=== PATIENT | male | born 1975 | race American Indian/Alaskan Native ===

== ENCOUNTER 2024-07-13 09:22 | Inpatient (IN) | payer BC, SELFPAY ==
--- NOTE | 2024-07-13 | XR_ITS ---
Examinations: MRI Brain without intravenous contrast. MRA brain without intravenous contrast. MRA carotids without intravenous contrast 3-D vascular reconstructions Date and time of exam: July 13, 2024 at 1157 hours INDICATIONS: Onset left-sided facial numbness today, stroke alert CT brain scan, CT brain July 13, 2024 subtle low density in the right occipital lobe, consistent with early infarct Technique: Multiple axial and sagittal images of the brain have been obtained MRA brain carotid images without contrast obtained, including 3-D postprocessing, vascular maximum intensity projection images Findings: Sellaturcica is not enlarged. The optic chiasm and infundibular stalk are not remarkable. Prepontine and interpeduncular cisterns are not enlarged. No localized enlargement of the medulla or donovan. Fourth ventricle and cerebellar tonsils normal in position. Subacute hemorrhage is not seen. Fourth ventricle is midline. Mass in the cerebellopontine angle region is not evident. 7th and 8th nerve complexes exhibits symmetry. Globes are symmetrical with no retro-orbital mass. Increased white matter signal not seen Diffusion-weighted images demonstrate no focus of restricted diffusion Mass-effect upon the ventricular system is not identified. MRA carotid images no large vessel occlusions. MRA brain images no carotid stenoses Impression: Negative for acute hemorrhage mass effect or midline shift No acute infarct No MR findings diagnostic for demyelinating disease No significant carotid stenoses No cerebral large vessel arterial occlusions or thrombus
[2024-07-13 09:30] VITALS: PULSE 58
[2024-07-13 09:34] VITALS: BP 142/92; PULSE 62; RESP 16; TEMP 36.7; O2SAT 98; BMI 29.4
--- NOTE | 2024-07-13 09:37 | XR_ITS ---
Examination: CTA carotids with intravenous contrast CTA brain, head with intravenous contrast. 2-D sagittal, coronal reconstructions. 3-D reconstructions. Exam date and time: July 13, 2024 0952 hours INDICATIONS: Stroke alert, onset left-sided body numbness beginning this morning CTDI: vol (mGy) 36.5 DLP: (mGycm) 507 Technique: Multiple CTA axial brain, head carotid images post intravenous contrast injection 75 cc, [id number]. 2-D sagittal, coronal reconstructions. 3-D reconstructions, 3-D post processing including vascular maximum intensity projection images. Low dose protocols were performed. One or more of the following dose reduction techniques were used; automated exposure control, adjustment of the mA and/or KV according to patient size, use of iterative reconstruction technique. Findings: No significant common carotid carotid bifurcation or internal carotid artery stenoses Minimally dominant left vertebral artery with no critical stenoses No cerebral large vessel arterial occlusions, thrombus, dissection or cerebral aneurysm IMPRESSION: No significant neck arterial stenoses No cerebral large vessel arterial occlusions or thrombus Brain MRI MRA without contrast, stroke protocol, would best assess for demyelinating disease
--- NOTE | 2024-07-13 09:37 | XR_ITS ---
Examination: CT brain head without contrast. 2-D sagittal coronal reconstructions Date and time of exam:July 13, 2024 0941 hours INDICATIONS: Stroke alert, onset focal neurologic deficit beginning this morning, numbness left side of the body CTDI: vol (mGy):52.5 DLP: (mGycm):1123 Technique: Multiple CT axial sections of the brain have been obtained, 5 mm slice thickness. Contrast has not been administered. 2-D sagittal, coronal reconstructions have been obtained Low dose protocols were performed. One or more of the following dose reduction techniques were used; automated exposure control, adjustment of the mA and/or KV according to patient size, use of iterative reconstruction technique. Findings: No significant ventricular enlargement. Axial image 28 shows subtle low density in the right occipital lobe Intra-axial or extra-axial hemorrhage density is not seen. No mass effect or midline shift Basal cisterns are not remarkable. Fourth ventricle is midline. Cranial vault intact. Impression: Negative for acute hemorrhage, mass effect or midline shift Subtle low density in the right occipital lobe, consider early acute infarct Recommend brain MRI MRA without contrast, stroke protocol, follow-up
--- NOTE | 2024-07-13 09:37 | EKG_ITS ---
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
--- NOTE | 2024-07-13 09:40 | EDNOTE_ITS ---
ED Headache RME/HPI General Chief Complaint: General Adult/Misc Complain Stated Complaint: LEFT FACIAL NUMBNESS/TINGLING; RECENT LOSS FAMILY Time Seen by Provider: 07/13/24 09:27 Arrival date/time: 07/13/24 09:22 RME / HPI RME / HPI Narrative: This section includes all my notes and documentations, including HPI, PE, and ED course.? Bill Churchill MD HPI: 49 year old male with history of hypertension presents to the ED for evaluation of left facial and left arm numbness beginning at ~ 06:00 am today (3 1/2 hours ago) while driving to work. Accompanied by a mild headache and tingling sensation to the left ear. Patient states he went to bed at 10:00pm last night and was at his usual state of health. Woke up at 05:30 am today and felt at his usual state of health. Denies fevers, chills, sweats, ear pain, chest pain, vis ion changes, loss of movement, or changes in gait. No loss of power in the arms or legs. No other complaints. Patient mentioned his brother, who is 1 year younger than him, had a stroke 5 years ago with major residual deficits. ROS: All negative except as documented in HPI. Physical Exam: General:? Alert and oriented.? No acute distress when remaining still.?? Eyes:? Conjunctivae and lids clear.? PERRL. EOMI. ENT:? No nasal congestion. Pharynx normal. TM normal bilaterally. Neck:? Supple.? No carotid bruit. No JVD. Heart:? RRR.? Lungs:? No respiratory distress.? Good air movement.? No rhonchi, wheezing, rales.?? Abdomen:? Soft and nontender.?? Legs:? No clubbing, cyanosis, edema.? Skin:? Warm and dry.?? Neuro:? Alert and oriented X 3.??Cranial nerves II to XII grossly normal. No peripheral motor deficits. I reviewed all diagnostic test results. My interpretation of the EKG is sinus rhythm (66 bpm) with nonspecific ST-T changes. My review of the CT report is?negative for acute hemorrhage, there is a subtle low density in the right occipital lobe. My review of the head/neck CTA report is no acute findings. Blood tests and urine tests?pending. At this point, diagnoses include?left side numbness. Treatment here included?aspirin. Patient remained stable. I discussed the case with our telehealth neurologist and our hospitalist.? About the presentation and exam and diagnostics and treatments here.? And need of further care in the hospital.? Will accept the patient. Bill Churchill MD Related Data Home Medications ?Medication ?Instructions ?Recorded ?Confirmed amlodipine 5 mg tablet 2.5 mg PO DAILY 07/30/21 07/31/21 lisinopril 30 mg tablet 30 mg PO QDAY 07/30/21 07/31/21 Nugenix 1 tab PO DAILY 07/31/21 07/31/21 multivitamin with minerals-folic 2 tab PO DAILY 07/31/21 07/31/21 acid 200 mcg chewable tablet (One-A-Day Men VitaCrRepligen) omega-3 fatty acids 1,000 mg PO QDAY 07/31/21 07/31/21 zinc 50 mg capsule 50 mg PO QDAY 07/31/21 07/31/21 Allergies Allergy/AdvReac Type Severity Reaction Status Date / Time No Known Allergies Allergy Verified 07/13/24 09:27 Review of Systems Review of Systems Systems Reviewed: All systems reviewed, normal except as documented Past Medical History Past Medical History CARDIAC: Positive Cardiac Disorders and Hypertension (TAKES MEDS) OTHER HISTORY: Positive Shingles (2014) and Chicken Pox Family History FAMILY HISTORY: Positive Family Cardiac Disorders (BROTHER (CVA,HTN)FATHER (HTN)) Surgical History SURGICAL: Negative Pacemaker Social History SMOKING STATUS: Never smoker ED Exam Narrative Physical exam: As noted in HPI Course Quality Measures Suspected type of Stroke: Acute Ischemic Tenecteplase given: Reason(s) TPA not given: Outside the time window not given stroke Orders Category Date Time Status Bedside Blood Glucose NOW Care 07/13/24 09:37 Active COVID-19 Screening Questionnaire NOW Care 07/13/24 10:23 Active Dietary Services Director NOW Care 07/13/24 09:37 Active Continuous Pulse Oximetry NOW Care 07/13/24 09:37 Active Decision to Admit X1 Care 07/13/24 10:23 Active EKG (ED ONLY) *Do not use* NOW Care 07/13/24 09:37 Completed Insert IV NOW Care 07/13/24 09:37 Active NIH Stroke Scale now Care 07/13/24 09:37 Active NPO NOW Care 07/13/24 09:37 Active Nurse Swallow Screen x1 Care 07/13/24 09:37 Active Consult to Neurology / Tele-Neurology Routine Cons 07/13/24 09:[address] angio stroke protocol Stat Exams 07/13/24 09:[address] stroke protocol Stat Exams 07/13/24 09:37 Completed EKG (ED Only) Stat Exams 07/13/24 09:37 Draft B-Type Natriuretic Peptide Stat Lab 07/13/24 09:47 Received CBC Stat Lab 07/13/24 09:47 Completed Comprehensive Metabolic Panel Stat Lab 07/13/24 09:47 Received Drug Screen,Urine Stat Lab 07/13/24 09:37 Ordered Magnesium Stat Lab 07/13/24 09:47 Received Partial Thromboplastin Time Stat Lab 07/13/24 09:47 Completed Prothrombin Time with INR Stat Lab 07/13/24 09:47 Completed Troponin I Stat Lab 07/13/24 09:47 Received Urinalysis Stat Lab 07/13/24 09:37 Ordered Aspirin Chew Med 07/13/24 10:22 Discontinued 324 mg PO X1 ONE Labetalol IV [Trandate IV] Med 07/13/24 09:37 Active 10 mg IV Q15M PRN Ondansetron Inj [Zofran Inj] Med 07/13/24 09:37 Active 4 mg IV Q4HR PRN Sodium Chloride 0.9% 1000 ml [Ns] 1,000 ml Med 07/13/24 09:45 Active IV Q10H Vital Signs Vital signs: Vital Signs Temperature 98.1 F 07/13/24 09:34 Pulse Rate 62 07/13/24 09:34 Respiratory Rate 16 07/13/24 09:34 Blood Pressure 142/92 H 07/13/24 09:34 Pulse Oximetry (%) 98 07/13/24 09:34 Oxygen Delivery Method Room Air 07/13/24 09:34 Pulse ox is 98% on room air which is adequate. Headache MDM Narrative MDM Narrative:: Yocasta Gutierrez am scribing for and in the presence of Dr. Churchill. Patient data External records reviewed:: [facility] previous records (I reviewed H&P on 07/31/2021) Clinical information provided by:: patient Social determinants that could affect healthcare access:: none Patient has the following chronic illnesses:: Hypertension How is presenting disease/condition affected by chronic disease/condition?: exacerbated by Evaluation data The following diagnostics were reviewed and interpreted by me:: lab results, radiology exam(s) and EKG tracing(s) (My interpretation of the EKG is: Sinus rhythm (66 bpm) with nonspecific ST-T changes. Bill Churchill MD) Lab and/or radiology exams considered but not ordered:: None Interpretation Summary: Early CVA Medications / Prescriptions Medications or Prescriptions considered but not ordered:: None Medication administrations:: Medication Administration History Sodium Chloride (Ns) 1,000 mls @ 100 mls/hr IV Q10H KODY Stop: 07/14/24 09:44 Labetalol HCl (Labetalol Inj 5 Mg/Ml Vial 20 Ml) 10 mg IV Q15M PRN PRN Reason: HYPER Ondansetron HCl (Ondansetron Inj 2 Mg/Ml Inj 2 Ml) 4 mg IV Q4HR PRN PRN Reason: NAUSEA OR VOMITING Stop: 08/12/24 09:36 Discontinued Medications Aspirin (Aspirin 81 Mg Chew) 324 mg PO X1 ONE Stop: 07/13/24 10:23 Aspirin Consultations Consultation(s) initiated? (list below): Yes Consultation #1 (Physician, Specialty, Details): I spoke with teleneurologist Dr. Osuna. States patient is not a tpa candidate, he is out of the time window. Time: 10:12 Diagnosis Differential diagnosis headache: migraine, tension headache, subarachnoid hemorrhage and other (CVA, TIA, Hendrickson's palsy, psychogenic) Most likely diagnosis given after review of the tests above:: Early CVA Admission Indicated Admission indicated?: indicated Explain why admission is indicated or not indicated:: CVA Admission Request Was there a request for admission?: Yes Admission Attestation Admission request attestation: Discussed case with our hospitalist service regarding admission. Discussed patients ED course, exam findings, labs, and radiology results. The Hospitalist [agrees,declines] to accept the patient for admission. Disposition Plan Disposition Plan: Admit Discharge Plan Plan Patient Disposition: Admit Acute Care w/in Hospital Prescriptions/Referrals Prescriptions/Med Rec: No Action amlodipine 5 mg tablet 2.5 mg PO DAILY lisinopril 30 mg Tablet 30 mg PO QDAY Fish Oil Capsule 1,000 mg PO QDAY zinc 50 mg Capsule 50 mg PO QDAY One-A-Day Men VitaCraves 200 mcg Tablet,Chewable 2 tab PO DAILY Nugenix 1 tab PO DAILY Problem List Clinical Impression: Left sided numbness Patient/Caregiver Discharge Instructions Print Language: Arabic Stand Alone Forms: [facility]rys Award Info., Patient Portal Info Letter
[2024-07-13 10:06] LABS: Basophils # (Auto) 0.1 Thou/mm3 (0.0-0.2); Basophils % (Auto) 1 % (0-2.5); Eosinophils # (Auto) 0.2 Thou/mm3 (0.0-0.5); Eosinophils % (Auto) 2 % (0-10); Hematocrit 45.4 % (41.0-53.0); Hemoglobin 15.7 g/dL (13.5-16.0); Immature Granulocytes % (Auto) 0 % (0-0); Immature Granulocytes Auto 0.01 Thou/mm3 (0.00-0.00); Lymphocytes % (Auto) 30 % (10-50); Mean Corpuscular HGB Conc 34.6 g/dl (31.0-37.0); Mean Corpuscular Hemoglobin 30.4 pg (25.0-35.0); Mean Corpuscular Volume 88 fL (80-100); Monocytes # (Auto) 0.5 Thou/mm3 (0.0-0.8); Monocytes % (Auto) 8 % (0-12); Neutrophils # (Auto) 3.9 Thou/mm3 (1.8-7.7); Neutrophils % (Auto) 59 % (37-80); Nucleated Red Blood Cell % 0 /100 WBC (0); Platelet Count 248 Thou/mm3 (140-440); RDW Standard Deviation 39.2 fL (35.1-43.9); Red Blood Count 5.17 Miln/mm3 (4.50-5.90); White Blood Count 6.7 Thou/mm3 (3.8-10.6)
--- NOTE | 2024-07-13 10:13 | ESCONSULT_ITS ---
Tele Neuro Consultation Consultation Date 07/13/24 Most Recent Vital Signs Last Vital Signs Temp 98.1 F 07/13/24 09:34 Pulse 62 07/13/24 09:34 Resp 16 07/13/24 09:34 BP 142/92 H 07/13/24 09:34 Pulse Ox 98 07/13/24 09:34 O2 Del Method Room Air 07/13/24 09:34 Consultation Narrative [facility] Tele[facility]urology Consult Services Patient Name:???Ulises Diaz Jr. Date of :???1975 Identification Number:??? Date of Service:???07/13/2024 09:43:20 Diagnosis:?R20.2 - Paresthesia of skin Impression: ?49yo man w/PMH of HTN p/w left face numbness on 07/13/24. He states he started having left face numbness at 05:30 and he went to work but it persisted so he came to the ED. He otherwise denies complaints or prior episodes. No history of migraines but admits to headache since last night which is rare. NIHSS 0. CT Head shows a subtle right occipital hypodensity. Pt is not a candidate for thrombolytics due to being out of the 4.5 hour window. CTA Head/Neck shows no clear acute large vessel occlusion. Presentation is concerning for acute small vessel ischemic stroke based on history and exam, MRI Brain advised. Other possibilities include intracranial neoplasm, PRES, partial seizure. Plan listed below was recommended to the ED physician by phone. Our recommendations are outlined below. Recommendations: ? Stroke/Telemetry Floor ? Neuro Checks ? Bedside Swallow Eval ? DVT Prophylaxis ? IV Fluids, Normal Saline ? Head of Bed 30 Degrees ? Euglycemia and Avoid Hyperthermia (PRN Acetaminophen) ? Initiate or continue Aspirin 81 MG daily ? Antihypertensives PRN if Blood pressure is greater than 220/120 or there is a concern for End organ damage/contraindications for permissive HTN. If blood pressure is greater than 220/120 give labetalol PO or IV or Vasotec IV with a goal of 15% reduction in BP during the first 24 hours. ?Routine MRI Brain with and without contrast to assess for stroke and ne oplasm ?TTE (if not recently done) ?Lipid Profile, A1C ?PT/OT, Speech/Swallow evaluation Sign Out: ? Discussed with Emergency Department Provider Advanced Imaging: CTA Head and Neck Completed. LVO:No Patient in not a candidate for [facility] Metrics: Last Known Well: 07/13/2024 05:30:00 Dispatch Time: 07/13/2024 09:43:20 Arrival Time: 07/13/2024 09:22:00 Initial Response Time: 07/13/2024 09:50:42Symptoms: left face numbness. Initial patient interaction: 07/13/2024 09:59:13 NIHSS Assessment Completed: 07/13/2024 10:07:14Patient is not a candidate for Thrombolytic. Thrombolytic Medical Decision: 07/13/2024 10:07:14Patient was not deemed candidate for Thrombolytic because of following reasons: LKW outside 4.5 hr window. . I personally Reviewed the CT Head and it Showed subtle right occipital hypodensity. Primary Provider Notified of Diagnostic Impression and Management Plan on: 07/13/2024 10:11:05 History of Present Illness:Patient is a 49 year old Male. Patient was brought by private transportation with symptoms of left face numbness. 49yo man w/PMH of HTN p/w left face numbness on 07/13/24. He states he started having left face numbness at 05:30 and he went to work but it persisted so he came to the ED. He otherwise denies complaints or prior episodes. No history of migraines but admits to headache since last night which is rare. Past Medical History: Other PMH:? see hpi Medications: No Anticoagulant use? No Antiplatelet use Reviewed EMR for current medications Allergies:? Reviewed Social History: Drug Use: No Family History: There Is Family History Of:CVA ROS : 14 Points Review of Systems was performed and was negative except mentioned in HPI. Past Surgical History: There Is No Surgical History Contributory To Today?s Visit Examination: BP(/),?Pulse(80), 1A: Level of Consciousness - Alert; keenly responsive?+ 0 1B: Ask Month and Age - Both Questions Right?+ 0 1C: Blink Eyes & Squeeze Hands - Performs Both Tasks?+ 0 2: Test Horizontal Extraocular Movements - Normal?+ 0 3: Test Visual Pelletier - No Visual Loss?+ 0 4: Test Facial Palsy (Use Grimace if Obtunded) - Normal symmetry?+ 0 5A: Test Left Arm Motor Drift - No Drift for 10 Seconds?+ 0 5B: Test Right Arm Motor Drift - No Drift for 10 Seconds?+ 0 6A: Test Left Leg Motor Drift - No Drift for 5 Seconds?+ 0 6B: Test Right Leg Motor Drift - No Drift for 5 Seconds?+ 0 7: Test Limb Ataxia (FNF/Heel-Heard) - No Ataxia?+ 0 8: Test Sensation - Normal; No sensory loss?+ 0 9: Test Language/Aphasia - Normal; No aphasia?+ 0 10: Test Dysarthria - Normal?+ 0 11: Test Extinction/Inattention - No abnormality?+ 0 NIHSS Score:?0 Pre-Morbid Modified Lorraine Scale:0 Points = No symptoms at all Spoke with :?ED MD This consult was conducted in real time using interactive audio and video technology. Patient was informed of the technology being used for this visit and agreed to proceed. Patient located in hospital and provider located at home/office setting. Patient is being evaluated for possible acute neurologic impairment and high probability of imminent or life-threatening deterioration. I spent total of 35 minutes providing care to this patient, including time for face to face visit via telemedicine, review of medical records, imaging studies and discussion of findings with providers, the patient and/or family. Dr Regis Osuna [facility] For Inpatient follow-up with [facility] physician please call [facility] at . As we are not an outpatient service for any post hospital discharge needs please contact the hospital for assistance. If you have any questions for the [facility] physicians or need to reconsult for clinical or diagnostic changes please contact us via [facility] at .
[2024-07-13 10:21] LABS: Partial Thromboplastin Time 29.6 Seconds (22.0-36.0); Prothrombin Time 10.6 Seconds (9.0-12.2)
[2024-07-13 10:26] LABS: Alanine Aminotransferase 55 U/L (10-49); Albumin/Globulin Ratio 1.8 (1.2-2.2); Alkaline Phosphatase 118 U/L (46-116); Anion Gap 6 (7-16); Aspartate Amino Transferase 31 U/L (0-34); BUN/Creatinine Ratio 15 Ratio (12-20); Bilirubin,Total 0.5 mg/dL (0.3-1.2); Blood Urea Nitrogen 15 mg/dL (9-23); Calcium 9.9 mg/dL (8.3-10.6); Calcium (Corrected) 9.9 mg/dL (8.5-10.1); Carbon Dioxide 28.3 mMol/L (20.0-31.0); Chloride 102 mMol/L (98-107); Estimated Creatinine Clearance 113.6 mL/min (>60); Globulin 2.8 gm/dL (2.3-3.5); Glucose 95 mg/dL (74-106); Magnesium 2.2 mg/dL (1.6-2.6); Osmolality,Calculated 272 (275-295); Potassium 5.2 mMol/L (3.4-5.1); Sodium 136 mMol/L (136-145); Total Protein 7.8 gm/dL (5.7-8.2); Troponin I < 0.002 ng/mL (0.0-0.045); eGFR > 60 See Note
[2024-07-13 10:33] LABS: B-Type Natriuretic Peptide < 20 pg/mL (0-100)
--- NOTE | 2024-07-13 10:59 | ECHO_ITS ---
Transthoracic Echo Report Ht (in): 74 Wt (lb): 229 Exam Location: ER Status: Inpatient Weight Guesser: Apurva Bauman Indications: Procedure Performed: BP: 128 / 92 HR: 62 Rhythm: Bradycardia Technical Quality: Fair Contrast: Agitated Saline Total Dose (mL): MEASUREMENTS (Male / Female) Normal Values 2D ECHO LV Diastolic Diameter PLAX 4.5 cm 4.2 - 5.9 / 3.9 - 5.3 cm LV Systolic Diameter PLAX 3.1 cm IVS Diastolic Thickness 1.1 cm 0.6 - 1.0 / 0.6 - 0.9 cm LVPW Diastolic Thickness 0.9 cm 0.6 - 1.0 / 0.6 - 0.9 cm LV Relative Wall Thickness 0.4 LVOT Diameter 2.2 cm LA Volume Index 20.8 cm?/m? 16 - 28 cm?/m? Ascending Aorta Diameter 3.2 cm M-MODE Aortic Root Diameter MM 3.3 cm LA Systolic Diameter MM 3.5 cm LA Ao Ratio MM 1.1 AV Cusp Separation MM 2.1 cm DOPPLER AV Peak Velocity 103.0 cm/s AV Peak Gradient 4.2 mmHg AV Mean Gradient 2.0 mmHg AV Velocity Time Integral 22.3 cm LVOT Peak Velocity 88.7 cm/s LVOT Peak Gradient 3.1 mmHg LVOT Velocity Time Integral 19.8 cm LVOT Cardiac Index 1986.6 cm?/min?m? AV Area Cont Eq vti 3.4 cm? AV Area Cont Eq pk 3.3 cm? MV Peak Velocity 84.6 cm/s MV Peak Gradient 2.9 mmHg MV Mean Velocity 44.7 cm/s MV Mean Gradient 1.0 mmHg MV Area PHT 3.8 cm? Mitral E Point Velocity 69.4 cm/s Mitral A Point Velocity 57.2 cm/s Mitral E to A Ratio 1.2 LV E' Lateral Velocity 16.5 cm/s Mitral E to LV E' Lateral Ratio 4.2 LV E' Septal Velocity 9.7 cm/s Mitral E to LV E' Septal Ratio 7.2 FINDINGS Left Ventricle Normal left ventricular size, wall thickness, systolic function with no obvious regional wall motion abnormalities. The ejection fraction is visually estimated at 60-65%. Right Ventricle The right ventricle is normal in size and systolic function. Left Atrium The left atrium is normal by two-dimensional, color flow and Doppler imaging with no structural abnormalities, no thrombus formation present. Right Atrium The right atrium is normal by two-dimensional imaging, color flow and Doppler imaging with no struct ural abnormalities, no thrombus formation present. Atrial Septum The interatrial septum appears normal with no evidence of a shunt. Aorta The aorta is normal by two-dimensional, color flow and Doppler interrogation. Mitral Valve The mitral valve is normal by two-dimensional, color flow and Doppler interrogation. There is trace mitral valve regurgitation. Aortic Valve The aortic valve is trileaflet and normal by two-dimensional, color flow and Doppler interrogation. There is no significant aortic valve regurgitation. Tricuspid Valve The tricuspid valve is normal by two-dimensional, color flow and Doppler interrogation. There is tra ce tricuspid valve regurgitation. Pulmonic Valve There is no significant pulmonic valve regurgitation. Vessels The pulmonary artery appears normal. The inferior vena cava pulmonary and hepatic veins appear sunita l. Pericardium The pericardium is normal by two-dimensional imaging. There is no significant pericardial effusion. CONCLUSIONS Negative bubble study. No evidence of PFO or ASD. Normal LV size and function. Estimated EF 60-65% Normal RV size and function Trace MR, TR. Daisha Thomason (Electronically Signed) Final Date: 14 July 2024 08:33
--- NOTE | 2024-07-13 11:15 | PC.NURSE ---
Pt. here from work to room 2, pt. states he was on his way to work this morning and felt mild numbness to left cheek pt. states he called his Doctor and they advised him to come here. Pt. states he may have had a headache last night. Pt. denies any pain at this time.
[2024-07-13] MEDS: ASPIRIN 81 MG CHEW 324 MG PO (11:29)
[2024-07-13] MEDS: HEPARIN SOD INJ 5000 UNIT/ML VIAL SC (11:31)
[2024-07-13] MEDS: SODIUM CHLORIDE 0.9% 1000 ML 1,000 ML 100 ML IV (11:32)
[2024-07-13 11:45] LABS: Collection Type, Urine Clean Catch; Squamous Epithelial Cell,Urine 0 /hpf (0-5); WBC,Urine 0 /hpf (0-5)
[2024-07-13 12:01] LABS: Bilirubin,Urine Negative (Negative); Blood,Urine Negative (Negative); Clarity,Urine Clear (Clear/Hazy); Color,Urine Colorless (Lt Yel-Yel); Glucose, Urine Negative (Negative); Ketones,Urine Negative (Negative); Leukocyte Esterase,Urine Negative (Negative); Nitrite,Urine Negative (Negative); PH,Urine 6.5 (5.0-7.0); Protein,Urine Negative (Neg - Trace); RBC,Urine 1 /hpf (0-3); Specific Gravity,Urine 1.028 (1.001-1.035); Urobilinogen,Urine Negative mg/dL (0.0-1.0)
[2024-07-13 12:07] LABS: Amphetamine/Methamp Scrn,U Negative (Negative); Barbiturate Screen,Urine Negative (Negative); Benzodiazepines Screen,Urine Negative (Negative); Benzoylecgonine Screen, Ur Negative (Negative); Fentanyl Screen,Urine Negative (Negative); Opiate Screen,Urine Negative (Negative); THC Screen,Urine Negative (Negative)
[2024-07-13 13:15] VITALS: BP 128/85; PULSE 64; RESP 16; O2SAT 98
--- NOTE | 2024-07-13 13:40 | PC.NURSE ---
Pt. is getting an echo in room 2.
--- NOTE | 2024-07-13 14:26 | PC.CC ---
Patient is a 49 year-old male who presents to the hospital for stroke rule out. Vandana OREILLY made [id number] contact with patient. ASW introduced self, role, and reason for visit. Patient appeared alert and oriented to self, location, and situation. Patient was pleasant and engaged in initial assessment. Patient confirmed information on demographics and reports he lives alone. Patient stated in the event he is unable to make his own medical decisions he would appoint his mother, Mary Diaz to make decisions for him. Patient is employes full-time at [employer]. At home patient is able to ambulate independently and complete own ADLs. The patient does not use any DME. Patient receives primary care with Brandon Arce and his pharmacy of choice is [facility]. Upon discharge patient plans to return home. tax services specialist to follow up with any discharge needs.
[2024-07-13 16:19] VITALS: BP 126/83; PULSE 65; RESP 17; O2SAT 100
--- NOTE | 2024-07-13 16:25 | ESHP_ITS ---
<Statement entered by Williams Small MD - 07/13/24 19:45> This patient is a 49-year-old male with past medical history of hypertension controlled outpatient presented with left facial numbness and weakness. Patient was in usual state of health and noticed symptoms in the morning. Teleneuro was consulted and stroke alert was initiated. Head CT showed subtle low-density right occipital lobe. Head and neck CT was unremarkable. NIHSS score 0. Patient was out of window for tPA. Loading dose of aspirin was given. Patient is admitted for stroke workup. Will follow-up with MRI brain stroke protocol, echo with bubble study, lipid panel, morning labs. Neurology has been consulted for the evaluation. Will continue with aspirin and atorvastatin. All labs and orders were reviewed. I saw and examined the patient, and I agree with current management stated by Dr Cassy MD,PGY1. Plan of care was discussed with the attending physician and resident physician. Disclaimer: Despite multiple revisions, due to the dictation software being used, the document bellow may not be free of grammatical errors including phonetic/typographic errors. However, this does not deter from our commitment to providing health care in the patient's best interest in mind. Dr. Staci MD, PGY 2 Documentation for date of: 07/13/24 HPI History of Present Illness Chief complaint: Facial numbness History of present illness: 49 y/o M with PMHx significant for hypertension controlled outpatient lisinopril presented to ED with chief complaint of left facial numbness/weakness. Patient was in his usual state of health when he woke up this morning, however on his way to work he noticed numbness/tension of his left face. Patient noted no other deficits. Patient presented to ED due to concern for stroke. Patient denies headaches, weakness, sensory deficits, visual changes, fever, chills, chest pain. ED COURSE: Lab significant for: Potassium 5.2, ALT 55, ALP 118. Imaging significant for: Head CT showing subtle low-density right occipital lobe. Head/neck CTA unremarkable, brain MRI showed no acute pathology. Patient given loading dose aspirin in the ED. PMH: Hypertension PSH: None. SH: Denies illicit drug use or tobacco use. Drinks 12 pack of beer weekly. FH: Unknown cardiac history on father side. Younger brother had a stroke 5 years ago. Allergies:?NKDA Medications: Lisinopril Review of Systems Review of Systems Systems Reviewed: All systems reviewed, normal except as documented Past Medical History Past Medical History Comments PMH COMMENT: PMH: Hypertension PSH: None. SH: Denies illicit drug use or tobacco use. Drinks 12 pack of beer weekly. FH: Unknown cardiac history on father side. Younger brother had a stroke 5 years ago. Allergies:?NKDA Medications: Lisinopril Exam Vital Signs Temp Pulse Resp BP Pulse Ox O2 Del Method 98.1 F 65 17 126/83 100 Room Air 07/13/24 09:34 07/13/24 16:19 07/13/24 16:19 07/13/24 16:19 07/13/24 16:19 07/13/24 16:19 Narrative Exam PE: Gen: Well-developed and well-nourished. HEENT: NCAT, PERRLA, EOMI, MMM, anicteric conjunctivae. CVS: normal S1 and S2. RRR. No M/R/G. Resp: CTA B/L. No rhonchi, rales, crackles or wheezing. Abd: soft, non-tender, non-distended. MSK: Good ROM in BUE & BLE. No edema or rash. Neuro: CN II-XII grossly intact. Strength 5/5 in BUE & BLE. Alert and oriented x3. No sensory deficits or muscular weakness noted. No focal neurological deficits. Psych: appropriate mood and affect. Results: Labs 07/13/24 09:47 07/13/24 09:47 Labs: Short CBC 07/13/24 Range/Units 09:47 WBC 6.7 (3.8-10.6) Thou/mm3 Hgb 15.7 (13.5-16.0) g/dL Hct 45.4 (41.0-53.0) % Plt Count 248 (140-440) Thou/mm3 BMP 07/13/24 09:47 Sodium 136 Potassium 5.2 H Chloride 102 Carbon Dioxide 28.3 BUN 15 Creatinine 1.0 Glucose 95 Calcium 9.9 Cardiac Enzymes 07/13/24 Range/Units 09:47 Troponin I < 0.002 (0.0-0.045) ng/mL Liver Function 07/13/24 Range/Units 09:47 Total Bilirubin 0.5 (0.3-1.2) mg/dL AST 31 (0-34) U/L ALT 55 H (10-49) U/L Alkaline Phosphatase 118 H (46-116) U/L Albumin 5.0 (3.5-5.0) gm/dL Urine 07/13/24 Range/Units 11:38 Urine Color Colorless A (Lt Yel-Yel) Urine Clarity Clear (Clear/Hazy) Urine pH 6.5 (5.0-7.0) Ur Specific [place] 1.028 (1.001-1.035) Urine Protein Negative (Neg - Trace) Urine Glucose (UA) Negative (Negative) Quality Measures Quality Measures stroke Suspected type of Stroke: Acute Ischemic Tenecteplase given: Reason(s) Tenecteplase not given: Outside the time window not given Rehab services: PT evaluation ordered and Speech Language Pathology eval ordered VTE Prophylaxis: pharmaceutical Antithrombotic by day 2:: not indicated (describe) (MRI negative for acute stroke) Statin ordered: <75 y/o high intensity dose Anticoagulation ordered for A-fib or flutter (current or hx): not indicated Medications Home Medications and Allergies Home Medications ?Medication ?Instructions ?Recorded ?Confirmed ?Type lisinopril 30 mg tablet 30 mg PO QDAY 07/30/21 07/13/24 History multivitamin with minerals-folic 2 tab PO DAILY 07/31/21 07/13/24 History acid 200 mcg chewable tablet (One-A-Day Men VitaCraves) omega-3 fatty acids 1,000 mg PO QDAY 07/31/21 07/13/24 History Allergies Allergy/AdvReac Type Severity Reaction Status Date / Time No Known Allergies Allergy Verified 07/13/24 09:27 Visit Medications Acetaminophen (Acetaminophen 325 Mg Tablet) 650 mg PO Q6H PRN PRN Reason: Fever >100.4 or pain Stop: 08/12/24 10:54 Aspirin (Aspirin Ec 81 Mg Tabec) 81 mg PO QDAY [facility] Stop: 08/13/24 08:59 Heparin Sodium (Porcine) (Heparin Sod Inj 5000 Unit/Ml Vial) 5,000 unit SC BID KODY Stop: 07/27/24 11:14 Last Admin: 07/13/24 11:31 Dose: 5,000 unit Sodium Chloride (Ns) 1,000 mls @ 100 mls/hr IV Q10H [facility] Stop: 07/14/24 09:44 Last Admin: 07/13/24 11:32 Dose: 100 mls/hr Labetalol HCl (Labetalol Inj 5 Mg/Ml Vial 20 Ml) 10 mg IV Q15M PRN PRN Reason: HYPER Ondansetron HCl (Ondansetron Inj 2 Mg/Ml Inj 2 Ml) 4 mg IV Q4HR PRN PRN Reason: NAUSEA OR VOMITING Stop: 08/12/24 09:36 Discontinued Medications Aspirin (Aspirin 81 Mg Chew) 324 mg PO X1 ONE Stop: 07/13/24 10:23 Last Admin: 07/13/24 11:29 Dose: 324 mg Assessment & Plan Plan 49 y/o M with PMHx significant for hypertension controlled outpatient lisinopril presented to ED with chief complaint of left facial numbness/weakness. #Stroke rule out versus TIA Patient presented with left facial numbness/tingling. Symptoms had resolved by time of exam. No focal neurological deficits noted on exam. Teleneuro consulted, NIHSS score 0. Head CT showed subtle low-density of right occipital lobe, but MRI showed no acute pathology. Patient received loading dose aspirin in the ED. Patient reports feeling stressed lately, worried because his brother had a stroke 5 years ago. Neurology consulted. -Aspirin 81 mg p.o. daily -Atorvastatin 80 mg p.o. at bedtime -Elevate head of bed 30 degrees -Neurology consulted, follow-up -Lipid panel, A1c, TSH ordered -PT/ST ordered -Permissive hypertension -Neurocheck every 4 hours -Echo with bubble study ordered, follow-up -Telemetry #HTN, patient history Patient has history of hypertension. Takes lisinopril at home. -Hold meds due to permissive hypertension DVT prophylaxis: Heparin GI prophylaxis: None Diet: Regular Lines: Peripheral IV Code status: Full code Plan of care discussed with senior resident Dr. Small PGY?[address] Tan. Farhan Madera MD PGY?1 Attending Provider Attestation/Addendum I have discussed and was present for the essential components of the history, physical examination, diagnosis, and treatment plan with the resident. I agree with the patient's care as documented by the resident and amended herein by me. Glynn Tan DO. Patient seen and evaluated this AM. In Short, patient is a 49-year-old male with significant past medical history of hypertension on lisinopril, presented for left-sided facial numbness and weakness, subsequently admitted for TIA. Vital signs stable, patient afebrile on admission. Initial CT head negative for any acute intracranial pathology however a subtle low-density in the right occipital lobe was noted. Head neck CTA negative, MRI brain with MRI negative for any acute intracranial pathology. Initial EKG showing NSR with a rate of 66. In-house neurology consulted, appreciate recommendations. Initial consult with teleneurology recommending usual stroke precautions as well as initiation of aspirin 81 mg daily. Physical therapy ordered, likely discharge tomorrow on 07/14 pending continued improvement and specialist recommendations. Will also follow-up with TSH, lipid panel and A1c. Although this document has been carefully reviewed, there may still be some phonetic and other typographical errors. These errors are purely grammatical due to imperfections in the software program and should not be construed in any way to compromise the substance of the patient's medical care during this visit.
--- NOTE | 2024-07-13 19:41 | EVENTNT_ITS ---
Documentation for date of: 07/13/24 Event Note Event Note: The patient has decided to sign out against medical advice (AMA) after being explained the risks & benefits of leaving before medical clearance/discharge. The patient had the opportunity to ask questions about their condition which were answered to their satisfaction; the patient is aware that they may return for further care at any time as needed. Patient was explained his MRI results which did not show acute stroke, but that currently echocardiogram results are still pending and awaiting recommendations from in-house Neurology. Patient was strongly recommended to stay until tomorrow and informed that he will most like ly be discharged by then. He was explained that although MRI results are negative given his risk factors there is still a possibility he had a TIA. Patient appeared to still want to go home. Patient was alert and oriented x4 with ability to demonstrate understanding of the above and signed the AMA form. Discussed with the attending physician, Dr. Acevedo. Mila Hill, PGY-2
--- NOTE | 2024-07-13 19:43 | PC.NURSE ---
@1915:Informed Dr. burk pt is wanting to know results of MRI, and pt's mother who is currently at bed is also requesting lab/ and imaging results. Per Dr. Burk, he would send resident to come speak to pt and mother. @1930: Resident Kay Hill, at bedside enplaning all results to pt and mother. Pt, stated to Vasquez Zhang, and Resident Sergio he would like to leave AMA. All risks and Benefits up to and including explained to pt. @194: Cooler Worker informed primary nurse Melanie who will give pt ama form.
--- NOTE | 2024-07-13 20:00 | PC.NURSE ---
PATIENT LEFT AMA AT THIS TIME. PATIENT IS ALERT AND ORIENTED. GCS 15. AMBULATORY WITH STEADY GAIT. MOTHER AT BEDSIDE. PATIENT VERBALIZED UNDERSTANDING OF LEAVING AMA. PATIENT ENCOURAGED TO RETURN. IV DISCONTINUED.
--- NOTE | 2024-07-14 08:25 | PD.RESDS ---
Planned Discharge Date 07/14/24 DS: Providers Provider Date of admission: 07/13/24 10:56 Primary care physician: Brandon Arce MD Admitting Provider: Tank Tan DO Attending Provider on Admission: Tank Tan DO Consults: 07/13/24 09:37 Consult to Neurology / Tele-Neurology Routine Comment: Consulting Provider: [facility] 07/13/24 10:56 Referral Physical Therapy Routine Comment: Physician Instructions: 07/13/24 10:58 Referral Speech Therapy Urgent Comment: 07/13/24 11:06 Consult to Neurology / Tele-Neurology Stat Comment: Consulting Provider: Mehdi Paulino Attending Provider on DC: Amadou Coles MD Discharging Provider: Amadou Coles MD DS: Diagnosis Problem List Completed Was Problem List Reviewed/Reconciled?: Yes Hospital Course Hospital Course Hospital course: 49 y/o M with PMHx significant for hypertension controlled outpatient lisinopril presented to ED with chief complaint of left facial numbness/weakness. Patient was in his usual state of health when he woke up this morning, however on his way to work he noticed numbness/tension of his left face. Patient noted no other deficits. Patient presented to ED due to concern for stroke. Patient denies headaches, weakness, sensory deficits, visual changes, fever, chills, chest pain. ED COURSE: Lab significant for: Potassium 5.2, ALT 55, ALP 118. Imaging significant for: Head CT showing subtle low-density right occipital lobe. Head/neck CTA unremarkable, brain MRI showed no acute pathology. Patient given loading dose aspirin in the ED. PMH: Hypertension PSH: None. SH: Denies illicit drug use or tobacco use. Drinks 12 pack of beer weekly. FH: Unknown cardiac history on father side. Younger brother had a stroke 5 years ago. Allergies:?NKDA Medications: Lisinopril PATIENT LEFT AMA DURING THE NIGHT. PLEASE SEE EVENT NOTE FROM IMMIGRATION CASE MANAGER TEAM REGARDING HIS DECISION TO AMA. Time Spent with Patient Time attestation: Total time spent providing and/or coordinating discharge services: Exam Vital Signs Temp Pulse Resp BP Pulse Ox O2 Del Method 98.1 F 65 17 126/83 100 Room Air 07/13/24 09:34 07/13/24 16:19 07/13/24 16:19 07/13/24 16:19 07/13/24 16:19 07/13/24 16:19 Narrative Exam PATIENT LEFT AMA DURING THE NIGHT. PLEASE SEE EVENT NOTE FROM IMMIGRATION CASE MANAGER TEAM REGARDING HIS DECISION TO AMA. Discharge Plan Plan Patient Disposition: Left Against Medical Advice Care Plan Goals: PATIENT LEFT AMA DURING THE NIGHT. PLEASE SEE EVENT NOTE FROM IMMIGRATION CASE MANAGER TEAM REGARDING HIS DECISION TO AMA. Prescriptions/Referrals Prescriptions/Med Rec: No Action lisinopril 30 mg Tablet 30 mg PO QDAY Fish Oil Capsule 1,000 mg PO QDAY multivit with min-folic acid [One-A-Day Men VitaCraves] 200 mcg Tablet,Chewable 2 tab PO DAILY Referrals: Brandon Arce MD [Primary Care Provider] - Patient/Caregiver Discharge Instructions Print Language: Icelandic Quality Discharge Quality Measures VTE prophylaxis Attestestation MD Attestation The patient left the hospital AGAINST MEDICAL ADVICE prior to being seen in the a.m. See resident note above for additional details in regards to his hospital visit.
== END 2024-07-13 20:04 | disposition left against medical advice (07) | DRG 93 ==
LOC: SERX 11:06 → SERHOLD 11:16
PROVIDERS: Admitting Provider Student in an Organized Health Care Education/Training Program; Emergency Provider Emergency Medicine; PCP Family Medicine; Visit Provider Student in an Organized Health Care Education/Training Program
DX: R20.2 Paresthesia of skin (principal); I10 Essential (primary) hypertension; Z53.29 Procedure and treatment not carried out because of patient's decision for other reasons; R53.1 Weakness
CPT/HCPCS: 36415; 70450; 70496; 70498; 70544; 80053; 80061; 80307; 81001; 83036; 83735; 83880; 84100; 84443; 84484; 85025; 85610; 85730; 92610; 93306; A4649; J1643; J7030; Q9967; A9270

== ENCOUNTER → 2024-08-25 | Outpatient (CLI) | payer BC, SELFPAY ==
[2024-08-25 08:12] LABS: Collection Type, Urine Clean Catch; Squamous Epithelial Cell,Urine 0 /hpf (0-5)
[2024-08-25 08:45] LABS: Glucose Estimated Average 120 mg/dL (80-131); Hemoglobin A1C 5.8 % Hgb (4.8-6.0)
[2024-08-25 08:50] LABS: Bilirubin,Urine Negative (Negative); Blood,Urine Negative (Negative); Clarity,Urine Clear (Clear/Hazy); Color,Urine Lt-Yellow (Lt Yel-Yel); Glucose, Urine Negative (Negative); Hyaline Casts,Urine < 1 /hpf (0-1); Ketones,Urine Negative (Negative); Leukocyte Esterase,Urine Negative (Negative); Nitrite,Urine Negative (Negative); Protein,Urine Negative (Neg - Trace); RBC,Urine 1 /hpf (0-3); Specific Gravity,Urine 1.024 (1.001-1.035); Urobilinogen,Urine Negative mg/dL (0.0-1.0); WBC,Urine 1 /hpf (0-5)
[2024-08-25 09:05] LABS: Alanine Aminotransferase 58 U/L (10-49); Albumin, Serum 4.5 gm/dL (3.5-5.0); Albumin/Globulin Ratio 1.9 (1.2-2.2); Alkaline Phosphatase 105 U/L (46-116); Anion Gap 10 (7-16); Aspartate Amino Transferase 33 U/L (0-34); BUN/Creatinine Ratio 22 Ratio (12-20); Bilirubin,Total 0.5 mg/dL (0.3-1.2); Blood Urea Nitrogen 22 mg/dL (9-23); Calcium 9.5 mg/dL (8.3-10.6); Calcium (Corrected) 9.5 mg/dL (8.5-10.1); Carbon Dioxide 22.7 mMol/L (20.0-31.0); Cardiac Risk Estimate 4.2 RATIO (4.0-6.7); Chloride 104 mMol/L (98-107); Cholesterol 220 mg/dL (132-200); Globulin 2.4 gm/dL (2.3-3.5); Glucose 97 mg/dL (74-106); HDL Cholesterol 52 mg/dL (40-60); LDL Cholesterol,Calculated 118 mg/dL (0-130); Osmolality,Calculated 277 (275-295); Potassium 4.5 mMol/L (3.4-5.1); Sodium 137 mMol/L (136-145); Total Protein 6.9 gm/dL (5.7-8.2); Triglycerides 251 mg/dL (30-150); Uric Acid 7.3 mg/dL (3.7-9.2); eGFR > 60 See Note
== END | disposition home or self-care (01) ==
PROVIDERS: PCP Family Medicine; Referring Provider Family Medicine; Visit Provider Family Medicine
DX: Z00.00 Encounter for general adult medical examination without abnormal findings (principal); I10 Essential (primary) hypertension; E79.0 Hyperuricemia without signs of inflammatory arthritis and tophaceous disease; Z83.3 Family history of diabetes mellitus; E78.2 Mixed hyperlipidemia
CPT/HCPCS: 36415; 80053; 80061; 81001; 83036; 84550

== ENCOUNTER → 2025-03-23 | Outpatient (CLI) | payer BC, SELFPAY ==
[2025-03-23 09:22] LABS: Alanine Aminotransferase 48 U/L (10-49); Albumin, Serum 4.6 gm/dL (3.5-5.0); Albumin/Globulin Ratio 2.0 (1.2-2.2); Alkaline Phosphatase 112 U/L (46-116); Anion Gap 7 (7-16); Aspartate Amino Transferase 33 U/L (0-34); BUN/Creatinine Ratio 17 Ratio (12-20); Bilirubin,Total 0.6 mg/dL (0.3-1.2); Blood Urea Nitrogen 19 mg/dL (9-23); Calcium 9.6 mg/dL (8.3-10.6); Calcium (Corrected) 9.6 mg/dL (8.5-10.1); Carbon Dioxide 27.8 mMol/L (20.0-31.0); Cardiac Risk Estimate 4.5 RATIO (4.0-6.7); Chloride 106 mMol/L (98-107); Cholesterol 211 mg/dL (132-200); Creatinine (Component) 1.1 mg/dL (0.6-1.3); Globulin 2.3 gm/dL (2.3-3.5); Glucose 102 mg/dL (74-106); HDL Cholesterol 47 mg/dL (40-60); LDL Cholesterol,Calculated 112 mg/dL (0-130); Osmolality,Calculated 283 (275-295); Potassium 5.8 mMol/L (3.4-5.1); Sodium 141 mMol/L (136-145); Total Protein 6.9 gm/dL (5.7-8.2); Triglycerides 260 mg/dL (30-150); eGFR > 60 See Note
== END | disposition home or self-care (01) ==
LOC: COPL 07:01
PROVIDERS: PCP Family Medicine; Referring Provider Family Medicine; Visit Provider Family Medicine
DX: E78.2 Mixed hyperlipidemia (principal); I10 Essential (primary) hypertension
CPT/HCPCS: 36415; 80053; 80061